=== PATIENT | male | born 1950 | race Caucasian/White ===

== ENCOUNTER 2018-07-05 08:44 | Day surgery (SDC) | payer OTHER ==
[2018-07-04 14:49] VITALS: BP 135/72
[2018-07-04 14:52] LABS: BASOPHILS % (AUTO) 0.4 % (0.0-5.0); EOSINOPHILS % (AUTO) 5.6 % (0.0-8.0); HEMATOCRIT 47.7 % (42-54); LYMPHOCYTES % (AUTO) 25.2 % (21.0-51.0); MEAN CORPUSCULAR HEMOGLOBIN 28.2 pg (27.0-33.0); MEAN CORPUSCULAR HGB CONC 32.8 g/dL (32.0-36.0); MEAN CORPUSCULAR VOLUME 86.1 fL (79-99); MONOCYTES % (AUTO) 9.7 % (3.0-13.0); NEUTROPHILS % (AUTO) 59.1 % (40.0-77.0); NUCLEATED RED BLOOD CELLS 0.1 % (0.0-0.19); PLATELET COUNT (AUTO) 397 K/uL (130-400); RED BLOOD CELL COUNT(AUTO) 5.55 MIL/uL (4.50-6.20); RED CELL DISTRIBUTION WIDTH 14.4 % (11.0-15.5); WHITE BLOOD COUNT (AUTO) 10.1 K/uL (4.8-10.8)
[2018-07-05] VITALS (14 sets, daily range): BP systolic 125–153; BP diastolic 70–91
[~2018-07-05] VITALS: Ht 182.9 cm; Wt 143.7 kg
[~2018-07-05 08:44] MED LIST: AMLO10TA7 PO; CEFAZOLIN 3GM /D5W 100ML 100 ML IV SCH; FINA5TAB41 PO; LOSA100T58 PO; METO100T14 PO; ROPI5TAB4 PO
[2018-07-05] MEDS ORDERED: LIDOCAINE HCL-MPF 1% 5ML AMP IJ ONE (10:11)
[2018-07-05] MEDS ORDERED: ROPIVACAINE 0.5% 5MG/ML 30ML IJ ONE ×2 (10:11→10:20)
[2018-07-05] MEDS ORDERED: LIDOCAINE HCL 4% LTA SOL 4 ML VIAL ONE (10:11)
[2018-07-05] MEDS ORDERED: LIDOCAINE HCL 2% JELLY 5 ML ONE (10:11)
[2018-07-05] MEDS ORDERED: DEXAMETHASONE SOD PHOSPHATE 10MG/ML 1ML VIAL ONE (10:12)
[2018-07-05] MEDS ORDERED: ONDANSETRON HCL 4 MG/2 ML VIAL ONE (10:12)
[2018-07-05] MEDS ORDERED: GLYCOPYRROLATE 1 MG/5 ML SYRINGE ONE (10:12)
[2018-07-05] MEDS ORDERED: PROPOFOL 10 MG/ML 20ML VIAL IV ONE (10:12)
[2018-07-05] MEDS ORDERED: FENTANYL CITRATE PF 50 MCG/1 ML 5ML AMP IV ONE (10:13)
[2018-07-05] MEDS ORDERED: MIDAZOLAM HCL 1 MG/ML 2ML VIAL ONE (10:13)
[2018-07-05] MEDS ORDERED: NEOSTIGMINE 5MG/5ML SYR IV ONE (10:13)
[2018-07-05] MEDS ORDERED: ROCURONIUM 10MG/1ML SYR 10 MG/ML ML ONE (10:13)
[2018-07-05] MEDS ORDERED: LACTATED RINGERS 1000ML 1,000 ML IV ONE (10:17)
[2018-07-05] MEDS ORDERED: SODIUM CHLORIDE 0.9% 1000ML 1,000 ML IV ONE (10:18)
--- NOTE | 2018-07-05 10:31 | NUR ---
ITEMS WITH SISTER INLAW Addendum: 07/05/18 at 1039 by TAYLOR BURK RN RN Amended: Links added.
[2018-07-05] MEDS: CEFAZOLIN SODIUM 1 GM VIAL ONE ×2 (10:40→12:10)
[2018-07-05] MEDS ORDERED: PHENYLEPHRINE HCL 10 MG/ML 1ML VIAL IV ONE (12:31)
[2018-07-05] MEDS ORDERED: EPINEPHRINE 1 MG/ML 30ML VIAL IJ ONE (12:40)
[2018-07-05] MEDS ORDERED: EPHEDRINE SULFATE 50 MG/ML AMPULE ONE (12:53)
[2018-07-05] MEDS ORDERED: HYDR-4457 PO (14:39)
[2018-07-05] MEDS ORDERED: CEPH500B PO (14:39)
== END 2018-07-05 16:56 | disposition home or self-care (01) ==
LOC: DAH 08:44
PROVIDERS: ATTEND Orthopaedic Surgery
DX: M75.101 Unspecified rotator cuff tear or rupture of right shoulder, not specified as traumatic (principal); M19.011 Primary osteoarthritis, right shoulder; S43.401A Unspecified sprain of right shoulder joint, initial encounter; X58.XXXA Exposure to other specified factors, initial encounter; Y93.9 Activity, unspecified; Y92.89 Other specified places as the place of occurrence of the external cause; Y99.9 Unspecified external cause status; G89.29 Other chronic pain; Z79.899 Other long term (current) drug therapy; Z98.890 Other specified postprocedural states; E11.9 Type 2 diabetes mellitus without complications; M19.90 Unspecified osteoarthritis, unspecified site; I10 Essential (primary) hypertension; Z68.41 Body mass index [BMI] 40.0-44.9, adult; Z98.49 Cataract extraction status, unspecified eye; E66.01 Morbid (severe) obesity due to excess calories; M25.511 Pain in right shoulder
CPT/HCPCS: 23430; 29822; 29824; 29826; 29827; 36415; 64415; 82948 ×2; 85025; A4218; A4565; A4649 ×6; A4930; A6204; C1713 ×2; J0171; J0690; J1100; J2250; J2370; J2405; J2704; J2710; J2795 ×2; J3010; J3490 ×3; J7030 ×2; J7120

== ENCOUNTER 2018-12-20 08:58 | Day surgery (SDC) | payer OTHER ==
[2018-12-19 16:39] VITALS: BP 168/81
[~2018-12-20] VITALS: Ht 182.9 cm; Wt 149.6 kg
[2018-12-20] VITALS (18 sets, daily range): BP systolic 142–169; BP diastolic 68–123
[~2018-12-20 08:58] MED LIST changes: +GLIP5TAB11 PO; -LOSA100T58 PO
[2018-12-20] MEDS ORDERED: SODIUM CHLORIDE 0.9% 1000ML 1,000 ML IV ONE (10:22)
[2018-12-20] MEDS ORDERED: CEFAZOLIN SODIUM 1 GM VIAL ONE ×2 (10:22→13:59)
[2018-12-20] MEDS ORDERED: DEXAMETHASONE SOD PHOSPHATE 10MG/ML 1ML VIAL ONE (13:20)
[2018-12-20] MEDS ORDERED: ONDANSETRON HCL 4 MG/2 ML VIAL ONE (13:20)
[2018-12-20] MEDS ORDERED: GLYCOPYRROLATE 1 MG/5 ML SYRINGE ONE (13:20)
[2018-12-20] MEDS ORDERED: PROPOFOL 10 MG/ML 20ML VIAL IV ONE (13:20)
[2018-12-20] MEDS ORDERED: SUCCINYLCHOLINE 200MG/10ML SYR ONE (13:20)
[2018-12-20] MEDS ORDERED: LIDOCAINE PF 2% 5ML ABBOJECT ONE (13:20)
[2018-12-20] MEDS ORDERED: ROCURONIUM 10MG/1ML SYR 10 MG/ML ML ONE (13:20)
[2018-12-20] MEDS ORDERED: MIDAZOLAM HCL 1 MG/ML 2ML VIAL ONE (13:20)
[2018-12-20] MEDS ORDERED: NEOSTIGMINE 5MG/5ML SYR IV ONE (13:20)
[2018-12-20] MEDS ORDERED: FENTANYL CITRATE PF 50 MCG/1 ML 2ML VIAL ONE (13:21)
[2018-12-20] MEDS ORDERED: BUPIVACAINE/PF 0.25% 30ML VIAL IJ ONE (14:05)
[2018-12-20] MEDS ORDERED: BUPIVACAINE/EPI/PF 0.5% 30ML VIAL IJ ONE (14:15)
[2018-12-20] MEDS ORDERED: NAPR-1192 PO (15:12)
[2018-12-20] MEDS ORDERED: CEPH500B PO (15:12)
[2018-12-20] MEDS ORDERED: HYDR-4457 PO (15:12)
[2018-12-20] MEDS ORDERED: MEPERIDINE-PF 25 MG/ML SYG ONE (15:33)
--- NOTE | 2018-12-20 16:25 | NUR ---
PATIENT ARRIVED TO DAY PATIENT VIA BED BY SUKHJINDER RAMOS. PATIENT AAOX3, RESPIRATIONS UNLABORED, VITAL SIGNS STABLE. DRESSING TO LEFT SHOULDER IS DRY AND INTACT. SLING TO LEFT ARM IN PLACE. PATIENT DENIES ANY PAIN AT THIS TIME. SIDERAILS UP X2, BED IN LOWEST POSITION, CALL CRONIN IN REACH,.
--- NOTE | 2018-12-20 17:00 | NUR ---
DISCHARGE INSTRUCTIONS GIVEN TO CAREGIVER. FOLLOW UP APPOINTMENT PROVIDED. WOUNDCARE/ACTIVITY/DIET/MEDICATION INSTRUCTIONS PROVIDED. ALL QUESTIONS/CONCERNS ADDRESSED.
--- NOTE | 2018-12-20 17:10 | NUR ---
PATIENT DISCHARGED FROM FACILITY VIA WHEELCHAIR AND TAKEN TO PRIVATE VEHICLE. PATIENT ACCOMPANIED BY CAREGIVER AND FRIEND.
== END 2018-12-20 17:10 ==
LOC: DAH 08:58
PROVIDERS: ATTEND Orthopaedic Surgery
DX: S46.011A Strain of muscle(s) and tendon(s) of the rotator cuff of right shoulder, initial encounter (principal); E11.9 Type 2 diabetes mellitus without complications; I10 Essential (primary) hypertension; G47.30 Sleep apnea, unspecified; E66.01 Morbid (severe) obesity due to excess calories; Z99.89 Dependence on other enabling machines and devices; Z96.653 Presence of artificial knee joint, bilateral; X58.XXXA Exposure to other specified factors, initial encounter; Y93.89 Activity, other specified; Y92.89 Other specified places as the place of occurrence of the external cause; Y99.8 Other external cause status
CPT/HCPCS: 23410; 82948 ×2; A4215; A4221; A4222; A4223; A4565; A4606; A4663; A4930 ×2; A5120; A6204; C1713; J0330; J0690 ×2; J1100; J2001; J2175; J2250; J2405; J2704; J2710; J3010; J3490 ×2; J7030 ×2

== ENCOUNTER 2020-03-24 10:03 | Inpatient (IN) | payer OTHER ==
[~2020-03-24] VITALS: Ht 182.9 cm; Wt 124.2 kg
[~2020-03-24 10:03] MED LIST changes: +AMLO-258 PO; -AMLO10TA7 PO; -CEFAZOLIN 3GM /D5W 100ML 100 ML IV SCH; +CEPH500B PO; +HYDR-4457 PO; +NAPR-1192 PO
[2020-03-24 10:36] LABS: BASOPHILS % (AUTO) 1.1 % (0.0-5.0); EOSINOPHILS % (AUTO) 0.3 % (0.0-8.0); HEMATOCRIT 53.6 % (42-54); LYMPHOCYTES % (AUTO) 14.1 % (21.0-51.0); MEAN CORPUSCULAR HEMOGLOBIN 28.2 pg (27.0-33.0); MEAN CORPUSCULAR VOLUME 85.5 fL (79-99); MONOCYTES % (AUTO) 13.8 % (3.0-13.0); NEUTROPHILS % (AUTO) 69.6 % (40.0-77.0); PLATELET COUNT (AUTO) 129 K/uL (130-400); RED BLOOD CELL COUNT(AUTO) 6.27 MIL/uL (4.50-6.20); WHITE BLOOD COUNT (AUTO) 3.7 K/uL (4.8-10.8)
[2020-03-24] MEDS ORDERED: SODIUM CHLORIDE 0.9% 1000ML 1,000 ML IV ONE (10:40)
[2020-03-24 10:42] LABS: CARBON DIOXIDE 24 mmol/L (21-32); CHLORIDE 98 mmol/L (101-111); CREATININE 1.9 mg/dL (0.5-1.5); GLOMERULAR FILTR. RATE CALC 37 mL/min (>60); GLUCOSE,RANDOM 182 mg/dL (70-105); POTASSIUM 5.1 mmol/L (3.5-5.1); SODIUM SERUM 135 mmol/L (136-145); UREA NITROGEN, BLOOD 21 mg/dL (7-18)
[2020-03-24 10:51] LABS: INR 1.04 (0.85-1.15); PARTIAL THROMBOPLASTIN TIME 35.5 SEC (26.3-35.5); PROTHROMBIN TIME 11.2 SEC (9.6-11.6)
[2020-03-24 10:53] LABS: ALANINE AMINOTRANSFERASE 47 U/L (12-78); ALBUMIN 3.8 g/dL (3.5-5.0); ASPARTATE AMINOTRANSFERASE 81 U/L (10-37); BILIRUBIN,TOTAL 0.9 mg/dL (0.2-1.0); CREATINE KINASE, TOTAL 171 U/L (21-232); MYOGLOBIN 217 ng/mL (10-92); TOTAL PROTEIN, SERUM 7.3 g/dL (6.0-8.3); TROPONIN I < 0.04 ng/mL (0.00-0.06)
[2020-03-24 11:02] LABS: ABG BASE EXCESS -6.1 mmol/L (-2.0-3.0); ABG HCO3 17.2 mmol/L (21.0-28.0); ABG OXYGEN SATURATION 97.3 % (95.0-99.0); ABG PCO2 29 mmHg (35-48)
[2020-03-24 11:14] LABS: APPEARANCE,URINE TURBID (CLEAR); BILIRUBIN,URINE SMALL (NEGATIVE); COLOR,URINE YELLOW (YELLOW); GLUCOSE, URINE (UA) NEGATIVE (NEGATIVE); KETONES,URINE 5 mg/dL (NEGATIVE); LEUKOCYTE ESTERASE ,URINE MODERATE (NEGATIVE); NITRATE,URINE NEGATIVE (NEGATIVE); OCCULT BLOOD,URINE SMALL (NEGATIVE); PH,URINE 5.5 (5.0-8.0); PROTEIN,URINE 100 mg/dL (NEGATIVE)
[2020-03-24 12:10] LABS: BACTERIA,URINE Many /HPF (None Seen); WBC,URINE >100 /HPF (0-1)
[2020-03-24 12:11] LABS: RENAL EPITHELIAL CELLS,URINE Rare /HPF (None Seen); TRANSITIONAL EPI CELLS,URINE Few /HPF (None Seen)
[2020-03-24] MEDS ORDERED: NITROGLYCERIN 0.4 MG SL TAB SL PRN (15:45)
[2020-03-24] MEDS ORDERED: HYDRALAZINE HCL 20 MG/ML VIAL IV PRN (15:45)
[2020-03-24] MEDS ORDERED: LACTULOSE 20 GM/30 ML UDCUP PO PRN (15:45)
[2020-03-24] MEDS ORDERED: ONDANSETRON HCL 4 MG/2 ML VIAL IV PRN (15:45)
[2020-03-24] MEDS: CEFTRIAXONE SODIUM 1 GM IVP SCH (15:45)
[2020-03-24] MEDS: AZITHROMYCIN 500MG+NS 250ML 250 ML IV SCH (15:45)
[2020-03-24] MEDS ORDERED: ACETAMINOPHEN 325 MG TAB PO PRN (15:45)
[2020-03-24] MEDS ORDERED: GUAIFENESIN-DM 200/20 MG 10 ML PO PRN (15:45)
[2020-03-24] MEDS ORDERED: CEFTRIAXONE SODIUM 1 GM ONE (17:24)
[2020-03-24] MEDS ORDERED: AZITHROMYCIN 500MG+NS 250ML 250 ML IV ONE (17:24)
[2020-03-24] MEDS ORDERED: ENOXAPARIN SODIUM 60 MG/0.6 ML SQ ONE (19:59)
[2020-03-24] MEDS ORDERED: FAMOTIDINE 20MG TAB 20 MG TAB ONE (19:59)
[2020-03-24] MEDS: ENOXAPARIN SODIUM 60 MG/0.6 ML SQ SCH (21:00)
[2020-03-24] MEDS: FAMOTIDINE 20MG TAB 20 MG TAB PO SCH (21:00)
[2020-03-25 05:06] LABS: BASOPHILS % (AUTO) 1.4 % (0.0-5.0); EOSINOPHILS % (AUTO) 1.4 % (0.0-8.0); HEMATOCRIT 47.9 % (42-54); LYMPHOCYTES % (AUTO) 20.5 % (21.0-51.0); MEAN CORPUSCULAR HEMOGLOBIN 28.4 pg (27.0-33.0); MEAN CORPUSCULAR HGB CONC 33.2 g/dL (32.0-36.0); MEAN CORPUSCULAR VOLUME 85.7 fL (79-99); MONOCYTES % (AUTO) 16.2 % (3.0-13.0); NEUTROPHILS % (AUTO) 59.4 % (40.0-77.0); PLATELET COUNT (AUTO) 93 K/uL (130-400); RED BLOOD CELL COUNT(AUTO) 5.59 MIL/uL (4.50-6.20); RED CELL DISTRIBUTION WIDTH 14.2 % (11.0-15.5); WHITE BLOOD COUNT (AUTO) 2.8 K/uL (4.8-10.8)
[2020-03-25 05:33] LABS: BILIRUBIN,TOTAL 0.6 mg/dL (0.2-1.0); CREATININE 1.5 mg/dL (0.5-1.5); TOTAL PROTEIN, SERUM 6.1 g/dL (6.0-8.3)
[2020-03-25 05:40] LABS: CRP QUANTITATIVE 9.4 mg/L (0.00-9.0)
[2020-03-25 05:41] LABS: BAND NEUTROPHILS % (MANUAL) 8 % (0-2); BASOPHILS % (MANUAL) 4 % (0-2); EOSINOPHILS % (MANUAL) 2 % (1-6); LYMPHOCYTES % (MANUAL) 14 % (22-44); MONOCYTES % (MANUAL) 8 % (2-9); SEGMENTED NEUTROPHILS % 64 % (40-70)
[2020-03-25 05:42] LABS: MAN.DIFF COMMENT-IMPRESSION MANUAL DIFFERENTIAL; PLATELET MORPHOLOGY COMMENT SLIGHTLY DECREASED
[2020-03-25] MEDS ORDERED: ENOXAPARIN SODIUM 60 MG/0.6 ML SQ ONE ×2 (08:18→22:04)
[2020-03-25] MEDS: ENOXAPARIN SODIUM 60 MG/0.6 ML SQ SCH ×2 (09:00→21:00)
--- NOTE | 2020-03-25 15:43 | NUR ---
MEENAKSHI WHITMAN Spoke to patient's brother and sister in law (Zee and Keisha Mccarthy) over the phone at number on file. As per Keisha, the patient is independent with ADLs prior to this admission, has some dme (cane, walker, wheelchair) and no home services. Keisha to assist with transportation at discharge. Preferred pharmacy is [facility] in [place]. Terrie Gaspar ([facility]) [phone] to be listed emergency contact as well. CM to follow up. Addendum: 03/25/20 at 1546 by JOY WRIGHT Amended: Links added.
[2020-03-25] MEDS: CEFTRIAXONE SODIUM 1 GM IVP SCH (15:45)
[2020-03-25] MEDS: AZITHROMYCIN 500MG+NS 250ML 250 ML IV SCH (15:45)
[2020-03-25] MEDS ORDERED: CEFTRIAXONE SODIUM 1 GM ONE (16:28)
[2020-03-25] MEDS ORDERED: AZITHROMYCIN 500MG+NS 250ML 250 ML IV ONE (16:28)
[2020-03-25] MEDS: FAMOTIDINE 20MG TAB 20 MG TAB PO SCH (21:00)
[2020-03-25] MEDS ORDERED: FAMOTIDINE/PF 20 MG/2 ML VIAL IV ONE (22:04)
[2020-03-25 23:15] VITALS: BP 134/82
[2020-03-26 04:00] VITALS: BP 148/88
[2020-03-26 05:41] LABS: BASOPHILS % (AUTO) 1.9 % (0.0-5.0); EOSINOPHILS % (AUTO) 4.2 % (0.0-8.0); HEMATOCRIT 48.2 % (42-54); MEAN CORPUSCULAR HEMOGLOBIN 28.2 pg (27.0-33.0); MEAN CORPUSCULAR HGB CONC 33.4 g/dL (32.0-36.0); MEAN CORPUSCULAR VOLUME 84.6 fL (79-99); MONOCYTES % (AUTO) 15.9 % (3.0-13.0); NEUTROPHILS % (AUTO) 40.7 % (40.0-77.0); PLATELET COUNT (AUTO) 62 K/uL (130-400); RED CELL DISTRIBUTION WIDTH 14.3 % (11.0-15.5); WHITE BLOOD COUNT (AUTO) 3.1 K/uL (4.8-10.8)
[2020-03-26 06:01] LABS: B-TYPE NATRIURETIC PEPTIDE 10 pg/mL (0-100)
[2020-03-26 06:23] LABS: ALBUMIN 2.9 g/dL (3.5-5.0); BILIRUBIN,TOTAL 0.7 mg/dL (0.2-1.0); CREATININE 1.2 mg/dL (0.5-1.5); POTASSIUM 3.8 mmol/L (3.5-5.1)
[2020-03-26 08:44] VITALS: BP 137/79
[2020-03-26] MEDS: ENOXAPARIN SODIUM 60 MG/0.6 ML SQ SCH ×2 (09:00→17:44)
[2020-03-26 11:50] VITALS: BP 148/85
[2020-03-26 17:23] VITALS: BP 150/85
[2020-03-26] MEDS ORDERED: PHARMACY COMMUNICATION MISC SCH (17:45)
[2020-03-26 19:00] VITALS: BP 147/72
[2020-03-26] MEDS: LEVOFLOXACIN 500 MG TABLET PO SCH (21:49)
[2020-03-26] MEDS: FAMOTIDINE 20MG TAB 20 MG TAB PO SCH (21:49)
[2020-03-26 23:00] VITALS: BP 146/84
[2020-03-27 03:00] VITALS: BP 133/78
[2020-03-27 04:27] LABS: BASOPHILS % (AUTO) 1.4 % (0.0-5.0); EOSINOPHILS % (AUTO) 7.2 % (0.0-8.0); HEMATOCRIT 46.9 % (42-54); LYMPHOCYTES % (AUTO) 34.7 % (21.0-51.0); MEAN CORPUSCULAR HGB CONC 33.5 g/dL (32.0-36.0); MEAN CORPUSCULAR VOLUME 83.8 fL (79-99); MONOCYTES % (AUTO) 10.5 % (3.0-13.0); NEUTROPHILS % (AUTO) 45.1 % (40.0-77.0); PLATELET COUNT (AUTO) 54 K/uL (130-400); RED CELL DISTRIBUTION WIDTH 14.1 % (11.0-15.5); WHITE BLOOD COUNT (AUTO) 2.8 K/uL (4.8-10.8)
[2020-03-27 05:08] LABS: ALBUMIN 2.9 g/dL (3.5-5.0); BILIRUBIN,TOTAL 0.8 mg/dL (0.2-1.0); CREATININE 1.2 mg/dL (0.5-1.5); POTASSIUM 3.7 mmol/L (3.5-5.1); TOTAL PROTEIN, SERUM 6.1 g/dL (6.0-8.3)
[2020-03-27 05:40] LABS: BAND NEUTROPHILS % (MANUAL) 2 % (0-2); EOSINOPHILS % (MANUAL) 4 % (1-6); LYMPHOCYTES % (MANUAL) 22 % (22-44); MONOCYTES % (MANUAL) 5 % (2-9); REACTIVE LYMPHOCYTES 3 % (0-0); SEGMENTED NEUTROPHILS % 64 % (40-70)
[2020-03-27 05:41] LABS: MAN.DIFF COMMENT-IMPRESSION MANUAL DIFFERENTIAL; PLATELET MORPHOLOGY COMMENT MARKED DECREASE
[2020-03-27 08:00] VITALS: BP 155/98
[2020-03-27 11:10] VITALS: BP 143/86
[2020-03-27 15:34] VITALS: BP 150/89
[2020-03-27 16:22] LABS: HEMATOCRIT 46.4 % (42-54); MEAN CORPUSCULAR HEMOGLOBIN 28.4 pg (27.0-33.0); MEAN CORPUSCULAR HGB CONC 33.8 g/dL (32.0-36.0); MEAN CORPUSCULAR VOLUME 84.1 fL (79-99); RED BLOOD CELL COUNT(AUTO) 5.52 MIL/uL (4.50-6.20); RED CELL DISTRIBUTION WIDTH 14.3 % (11.0-15.5); WHITE BLOOD COUNT (AUTO) 3.1 K/uL (4.8-10.8)
[2020-03-27 19:00] VITALS: BP 150/68
[2020-03-27] MEDS: LEVOFLOXACIN 500 MG TABLET PO SCH (20:10)
[2020-03-27] MEDS: FAMOTIDINE 20MG TAB 20 MG TAB PO SCH (20:10)
[2020-03-27 23:00] VITALS: BP 134/72
[2020-03-28 03:00] VITALS: BP 130/60
[2020-03-28 04:43] LABS: BASOPHILS % (AUTO) 1.5 % (0.0-5.0); EOSINOPHILS % (AUTO) 10.2 % (0.0-8.0); HEMATOCRIT 47.3 % (42-54); LYMPHOCYTES % (AUTO) 41.4 % (21.0-51.0); MEAN CORPUSCULAR HEMOGLOBIN 28.3 pg (27.0-33.0); MEAN CORPUSCULAR HGB CONC 33.8 g/dL (32.0-36.0); MEAN CORPUSCULAR VOLUME 83.6 fL (79-99); PLATELET COUNT (AUTO) 70 K/uL (130-400); RED BLOOD CELL COUNT(AUTO) 5.66 MIL/uL (4.50-6.20); RED CELL DISTRIBUTION WIDTH 14.1 % (11.0-15.5); WHITE BLOOD COUNT (AUTO) 3.2 K/uL (4.8-10.8)
[2020-03-28 05:17] LABS: ALBUMIN 2.9 g/dL (3.5-5.0); BILIRUBIN,TOTAL 0.8 mg/dL (0.2-1.0); CREATININE 1.2 mg/dL (0.5-1.5); POTASSIUM 3.7 mmol/L (3.5-5.1); TOTAL PROTEIN, SERUM 6.1 g/dL (6.0-8.3)
[2020-03-28 07:44] VITALS: BP 161/99
[2020-03-28 11:24] VITALS: BP 164/98
[2020-03-28 15:20] VITALS: BP 154/84
--- NOTE | 2020-03-29 16:09 | NUR ---
TRANSITIONAL CARE -- Post-Discharge Note NO ANSWER. Left voicemail identifying myself and requesting a callback.
== END 2020-03-28 18:09 | disposition home or self-care (01) | DRG 871 ==
LOC: EDH 10:03 → EDHIP 15:44 → 4DH 03-25 23:24
PROVIDERS: ADMIT Hospitalist; ATTEND Hospitalist
DX: A41.9 Sepsis, unspecified organism (principal); J96.00 Acute respiratory failure, unspecified whether with hypoxia or hypercapnia; E87.2 Acidosis; N17.9 Acute kidney failure, unspecified; N12 Tubulo-interstitial nephritis, not specified as acute or chronic; E87.1 Hypo-osmolality and hyponatremia; R65.20 Severe sepsis without septic shock; I12.9 Hypertensive chronic kidney disease with stage 1 through stage 4 chronic kidney disease, or unspecified chronic kidney disease; E11.22 Type 2 diabetes mellitus with diabetic chronic kidney disease; D69.6 Thrombocytopenia, unspecified; D72.810 Lymphocytopenia; R53.81 Other malaise; N18.9 Chronic kidney disease, unspecified; Z20.828 Contact with and (suspected) exposure to other viral communicable diseases; N40.0 Benign prostatic hyperplasia without lower urinary tract symptoms; Z82.0 Family history of epilepsy and other diseases of the nervous system; Z82.49 Family history of ischemic heart disease and other diseases of the circulatory system; Z80.9 Family history of malignant neoplasm, unspecified
CPT/HCPCS: 36415; 36600; 71045; 76770; 78582; 80053; 81001; 82550; 82728; 82803; 82948; 83605; 83615; 83874; 83880; 84145; 84484; 85025; 85027; 85378; 85610; 85730; 86140; 86900; 86901; 87040; 87077; 87088; 87186; 87426; 87804; 93005; 93970; A9540; A9558; G0378; J0456; J0696; J1650; J3490; J7030; U0003